=== PATIENT | female | born 1980 | race Caucasian/White ===

== ENCOUNTER → 2016-09-15 | Outpatient (CLI) | payer BC ==
[~2016-09-15] MED LIST: ASPI81TA28 PO; ENOX40IN SQ; PRED1SOL PO; PREN-88 PO; PRGI IM
== END | disposition home or self-care (01) ==
LOC: C.PAPS 16:05
PROVIDERS: ATTEND Obstetrics & Gynecology
DX: Z01.419 Encounter for gynecological examination (general) (routine) without abnormal findings (principal)

== ENCOUNTER → 2017-02-02 | Outpatient (CLI) | payer BC ==
--- NOTE | 2017-02-02 09:10 | DIAGNOSTIC IMAGING REPORT ---
KUB CLINICAL HISTORY: Abnormal cystoscopy. Gross hematuria. Nephrolithiasis. FINDINGS: 3 AP supine abdominal radiographs are correlated with abdominal CT dated 02/02/2016. There is no radiographic evidence of bowel obstruction. There is mild gaseous distention of the small bowel and colon, likely representing ileus. No renal calculi are identified. The bony structures appear intact. IMPRESSION: 1. There is no radiographic evidence of nephrolithiasis. Nonobstructing right renal calculi seen by CT on 02/02/2016 were not visualized by x-ray. 2. Findings suggest mild ileus. Clinical correlation will be required. Electronically signed by: Benton Brown M.D. 02/02/2017 9:09 AM Dictated Date/Time: 02/02/2017 9:06 AM
== END | disposition home or self-care (01) ==
LOC: C.RAD 08:29
PROVIDERS: ATTEND Urology
DX: R10.2 Pelvic and perineal pain (principal); N20.0 Calculus of kidney; N39.0 Urinary tract infection, site not specified; R31.0 Gross hematuria; R31.29 Other microscopic hematuria; R33.9 Retention of urine, unspecified; R39.198 Other difficulties with micturition

== ENCOUNTER → 2017-02-28 | Outpatient (CLI) | payer BC ==
--- NOTE | 2017-02-28 12:44 | DIAGNOSTIC IMAGING REPORT ---
ULTRASOUND RIGHT UPPER QUADRANT ABDOMEN CLINICAL HISTORY: Right upper quadrant abdominal pain. COMPARISON STUDY: Abdominal CT scans dated 02/02/2016, 04/29/2013, and 02/03/2011. TECHNIQUE: Real-time, grayscale, and color flow sonography of the right upper quadrant of the abdomen was performed. Images are reviewed in the transverse and longitudinal planes. The examination is significantly degraded by intervening colonic contents. FINDINGS: Liver: The liver is suboptimally assessed due to overlying colon. The liver is gross normal in echotexture. The right lobe appears diminutive. There is no intrahepatic biliary ductal dilatation. The main portal vein is patent. Gallbladder: The gallbladder is not visualized. The common bile duct is not seen. Pancreas: Not well visualized due to overlying bowel gas. Right kidney: Survey images of the right kidney demonstrate cortical atrophy. There is no hydronephrosis. Ascites: No abdominal ascites is identified. There is a multiloculated fluid containing structure identified in the right abdomen which extends into the pelvis. This measures at least 25 cm in length and has been seen on CT scans dated 2015, 2012, and 2010. IMPRESSION: 1. Significantly degraded examination as the right abdomen is largely obscured by the overlying gas-filled colon. The gallbladder, common bile duct, and pancreas were not visualized. The liver was suboptimally assessed. 2. There is a multiloculated fluid containing structure identified in the right midabdomen. This has been seen on prior CT scans dated 02/02/2016, 04/29/2013, and 02/03/2011. The appearance suggests a fluid density lesion such as a lymphangioma or possibly a mesenteric inclusion cyst, and this lesion has significantly increased in size dating back to 2010. No soft tissue component is identified. Findings were discussed with Dr. Hopper at the time of interpretation. Electronically signed by: Benton Brown M.D. 02/28/2017 12:43 PM Dictated Date/Time: 02/28/2017 12:15 PM
[2017-02-28 12:47] LABS: ALT/SGPT 21 U/L (12-78); AST/SGOT 12 U/L (15-37); BLOOD UREA NITROGEN 13 mg/dl (7-18); BUN/CREATININE RATIO 20.9 (10-20); CARBON DIOXIDE 27 mmol/L (21-32); CHLORIDE 110 mmol/L (98-107); CREATININE 0.62 mg/dl (0.60-1.20); GLUCOSE 89 mg/dl (70-99); POTASSIUM 3.7 mmol/L (3.5-5.1); SODIUM 141 mmol/L (136-145)
[2017-02-28 12:50] LABS: ALKALINE PHOSPHATASE 50 U/L (45-117); CHOLESTEROL 137 mg/dl (0-200); CHOLESTEROL/HDL RATIO 2.9; ESTIMATED AVERAGE GLUCOSE 108 mg/dl; HA1C FLAG Normal (Normal); HDL CHOLESTEROL 48 mg/dl; LDL CHOLESTEROL CALCULATED 71 mg/dl; TRIGLYCERIDES 91 mg/dl (0-150); VERY LOW DENSITY LIPOPROT CALC 18 mg/dl
== END | disposition home or self-care (01) ==
LOC: C.ULTR 10:59
PROVIDERS: ATTEND Student in an Organized Health Care Education/Training Program
DX: Z86.39 Personal history of other endocrine, nutritional and metabolic disease (principal); R10.11 Right upper quadrant pain; Z13.1 Encounter for screening for diabetes mellitus; Z13.220 Encounter for screening for lipoid disorders; R93.5 Abnormal findings on diagnostic imaging of other abdominal regions, including retroperitoneum

== ENCOUNTER → 2017-07-03 | Outpatient (CLI) | payer BC | END | disposition home or self-care (01) | LOC: C.LAB 17:10 | PROVIDERS: ATTEND Nurse Practitioner Adult Health | DX: N39.0 Urinary tract infection, site not specified (principal) ==

== ENCOUNTER → 2017-12-27 | Outpatient (CLI) | payer BC ==
--- NOTE | 2017-12-27 16:06 | MAMMOGRAPHY REPORT ---
BILATERAL FIRST EVER DIGITAL DIAGNOSTIC MAMMOGRAM TOMOSYNTHESIS WITH CAD AND TARGETED BILATERAL ULTRA SOUND: 12/27/2017 CLINICAL HISTORY: The patient reports a palpable left breast lump for approximately 1 month. She wilberto es any known trauma to the breast. TECHNIQUE: The study was acquired using full field digital technology and interpreted from soft copy. Breast tomosynthesis in addition to standard 2D mammography was performed. Current study was also ev aluated with a Computer Aided Detection (CAD) system. Bilateral CC and MLO 2D and tomosynthesis imag es were obtained. COMPARISON: No prior exams were available for comparison. BREAST COMPOSITION: There are scattered areas of fibroglandular density in both breasts. FINDINGS: A triangle marker fraire the site of the palpable lump pointed out by the patient in the lef t superior breast at approximately 1:00. No suspicious masses or other suspicious mammographic abnor malities are seen in this region. There is a nodular 10 mm asymmetry seen on the cc tomosynthesis im ages, for which ultrasound was performed. The remainder of both breasts are negative, without suspic ious masses, calcifications, or areas of architectural distortion noted. Targeted ultrasound was performed of the area of the palpable lump pointed out by the patient, in the left breast at approximately 12:00, 8 cm from the nipple. At the site of the palpable lump there is a superficially located, mixed echogenicity mass which measures 9 x 5 x 8 mm. The mass is centrally hypoechoic and peripherally hyperechoic. This has sonographic features of possible fat necrosis, ho wever, the patient denies any known trauma to the region. Therefore, the mass is indeterminate and u ltrasound-guided core needle biopsy is recommended for further evaluation. Targeted ultrasound was performed of the right medial breast in the region of the mammographic asymme try, which shows sonographically normal tissue without evidence of a mass or other suspicious sonogra phic abnormality. Given the lack of a corresponding abnormality, the asymmetry is felt to represent normal fibroglandular tissue. IMPRESSION: ACR BI-RADS CATEGORY 4: SUSPICIOUS, ULTRASOUND ACR BI-RADS CATEGORY 4: SUSPICIOUS 1. Mixed echogenicity 9 mm mass at the site of the palpable lump in the left 12:00 breast. This has sonographic features suggestive of fat necrosis, however, the patient denies any known trauma to the region. Therefore, the mass is indeterminate and ultrasound-guided core needle biopsy is recommende d for further evaluation. 2. No mammographic evidence of malignancy in the right breast. A phone call was made to the physician's office to confirm faxed results were received. The patient has been verbally notified of the results. She tentatively scheduled the biopsy before l eaving the department. Some breast cancers are not detected with mammography. A negative mammographic report should not lonnie y biopsy if a clinically suggestive mass is present. Ana Cervantes M.D. ah/:12/27/2017 12:45:52 Forest Fire Control Officer: RT Neymar(R)(M), [facility]; Ana Cervantes MD, [facility] letter sent: Abnormal 4/5 OVERALL STUDY BIRADS: 4 Suspicious abnormality
== END | disposition home or self-care (01) ==
LOC: C.MAMM 09:05
PROVIDERS: ATTEND Obstetrics & Gynecology
DX: N63.20 Unspecified lump in the left breast, unspecified quadrant (principal)

== ENCOUNTER → 2018-01-11 | Outpatient (CLI) | payer BC ==
--- NOTE | 2018-01-11 10:27 | Discharge Instructions ---
Discharge Instructions Procedure Procedure Date: Jan 11, 2018. Reason for visit: Left Mass. Discharge Discharge Date: Jan 11, 2018. Discharge Diagnosis: status post breast biopsy Instructions Activity Recommendations: Additional Limitations (see below) Return to School/Work: no limitations Recommended Home Diet: No Limitations Provider Instructions: ACTIVITY RECOMMENDATIONS: * No lifting, pushing, pulling or exercising the affected side for three days. RETURN TO SCHOOL/WORK: * You may return to work/school after the procedure, but do not perform any strenuous activities for 24 to 48 hours. MEDICATIONS: * Tylenol (two 325 mg) every four to six hours if needed for mild pain (if not allergic to Tylenol). DIET: * Resume previous diet. SPECIAL CARE INSTRUCTIONS: * Keep biopsy site dry for 24 hours. May shower after 24 hours, but do not soak (bathe) incision. * May remove Tegaderm (plastic patch) 24 hours after procedure * Leave the steri-strips on for one week. Allow the steri-strips to fall off by themselves. If not off after one week, you may remove them. You may place a Bandaid crosswise over the strips, if desired. * Apply ice 10 minutes on and 10 minutes off as needed. * Wear a bra at bedtime to sleep more comfortably for 2-3 days. * Your referring physician should have the results after approximately 5 to 7 business days. * Call for unusual bleeding, fever, drainage, etc or if you have any questions call during normal business hours or after hours call Dr Cervantes, . FOLLOW UP VISIT: Follow-up with Referring Physician as scheduled. Allergies Coded Allergies: No Known Allergies (Verified , 05/21/15) Neftaly Ugalde Recommendations: Call your doctor if: * Temperature above 101 degrees * Pain not relieved by pain medicine ordered * There is increased drainage or redness from any incision * You have any unanswered questions or concerns. Your Doctors Instructions noted above were prepared by provider Ana Cervantes. Patient Signature Section: Patient Instructions Signature Page Shay Reyes Patient (or Guardian) Signature/Date: I have read and understand the instructions given to me by my caregivers. Caregiver/RN/Doctor Signature/Date: The above-named patient and/or guardian has received patient instructions on this date. + Original Patient Signature Page (only) stays with chart. Please make copy for patient.
--- NOTE | 2018-01-11 14:34 | MAMMOGRAPHY REPORT ---
ULTRASOUND GUIDED BIOPSY LEFT BREAST: 01/11/2018 CLINICAL HISTORY: Mixed echogenicity mass in the left 12:00 breast. PATIENT CONSENT: The procedure, risks and benefits were discussed with the patient and informed writt en consent was obtained. A timeout was performed immediately prior to the procedure. PROCEDURE DESCRIPTION: With ultrasound guidance, aseptic technique, and lidocaine as the local anesth etic (1% lidocaine to anesthetize the skin and 1% lidocaine with epinephrine to anesthetize the deepe r tissues), the mass of concern in the left 12:00 breast was sampled 3 times with a 14-gauge Achieve biopsy needle. Immediately thereafter, with ultrasound guidance, a metallic localizer clip was plac ed at the biopsy site. Direct pressure was applied to the site immediately post procedure until hemo stasis was achieved. Postprocedure unilateral mammograms were performed to confirm clip placement; s ee separate dictation for details. Steri-Strips were placed over the site and covered with an Opsite patch. The patient tolerated the procedure without complication. She was given wound care instructi ons. The specimens were sent to pathology for analysis. COMPARISON: Comparison is made to exams dated: 12/27/2017 ultrasound and 12/27/2017 mammogram - [facility]. IMPRESSION: ULTRASOUND GUIDED BIOPSY Ultrasound-guided core needle biopsy of the mixed echogenicity mass in the left 12:00 breast, with cl ip placement. The patient will receive pathology results from her referring provider. Ana Ceravntes M.D. ah/:01/11/2018 10:28:26 Cardiology Technician: RT Yoselin(Afshin)(M), [facility]
--- NOTE | 2018-01-11 14:37 | MAMMOGRAPHY REPORT ---
UNILATERAL LEFT DIGITAL DIAGNOSTIC MAMMOGRAM TOMOSYNTHESIS: 01/11/2018 CLINICAL HISTORY: Status post left breast biopsy. TECHNIQUE: The study was acquired using full field digital technology and interpreted from soft copy. Breast tomosynthesis in addition to standard 2D mammography was performed. Postprocedural left CC a nd ML tomosynthesis images were obtained. COMPARISON: Comparison is made to exams dated: 12/27/2017 mammogram and 12/27/2017 ultrasound - [facility]. BREAST COMPOSITION: There are scattered areas of fibroglandular density in left breast. FINDINGS: A new ribbon-shaped biopsy marker clip is seen in the expected location of the biopsied mix ed echogenicity mass in the left superior breast at approximately 12:00. No significant postbiopsy h ematoma is seen. IMPRESSION: POST PROCEDURE IMAGING FOR MARKER PLACEMENT New biopsy clip status post left breast ultrasound-guided biopsy. Pathology results are pending. Some breast cancers are not detected with mammography. A negative mammographic report should not lonnie y biopsy if a clinically suggestive mass is present. Ana Cervantes M.D. ah/:01/11/2018 10:34:44 Glass Cutting Machine Feeder: RT Yoselin(R)(M), [facility] BI-RADS Code: Post Procedure Imaging For Marker Placement
== END | disposition home or self-care (01) ==
LOC: C.MAMM 09:28
PROVIDERS: ATTEND Obstetrics & Gynecology
DX: N61.0 Mastitis without abscess (principal)

== ENCOUNTER 2018-01-25 17:32 | Emergency (ER) | payer BC ==
[2018-01-25 17:34] VITALS: TEMP 36.6
[2018-01-25] MEDS ORDERED: IBUPROFEN 800 MG TAB PO STA (17:58)
--- NOTE | 2018-01-25 18:28 | DIAGNOSTIC IMAGING REPORT ---
RIGHT TIBIA AND FIBULA 2 VIEWS CLINICAL HISTORY: Right leg pain. FINDINGS: AP and lateral views of the right tibia and fibula are obtained. No prior studies are available for comparison at the time of dictation. The skeletal structures are well mineralized. No fracture is seen. The knee and ankle joints are grossly maintained. Mild soft tissue swelling is observed. IMPRESSION: Mild soft tissue swelling with no acute bony abnormality identified. Electronically signed by: Benton Brown M.D. 01/25/2018 6:27 PM Dictated Date/Time: 01/25/2018 6:26 PM
--- NOTE | 2018-01-25 18:29 | DIAGNOSTIC IMAGING REPORT ---
RIGHT KNEE 3 VIEWS CLINICAL HISTORY: Fall with right knee pain. FINDINGS: AP, crosstable lateral, and sunrise views of the right knee are obtained. No prior studies are available for comparison at the time of dictation. The skeletal structures are well mineralized. No fracture is seen. The joint spaces of the knee are well-maintained. There is no joint effusion. Mild prepatellar soft tissue swelling is noted. IMPRESSION: Mild soft tissue swelling with no radiographic evidence of right knee fracture. Electronically signed by: Benton Brown M.D. 01/25/2018 6:28 PM Dictated Date/Time: 01/25/2018 6:27 PM
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
[2018-01-25 18:56] VITALS: BP 151/79; PULSE 84; O2SAT 100
== END 2018-01-25 18:59 | disposition home or self-care (01) ==
LOC: C.EDB 17:33 → C.EDD 18:59
DX: S83.91XA Sprain of unspecified site of right knee, initial encounter (principal); S80.11XA Contusion of right lower leg, initial encounter; V09.09XA Pedestrian injured in nontraffic accident involving other motor vehicles, initial encounter; X50.1XXA Overexertion from prolonged static or awkward postures, initial encounter; Z79.02 Long term (current) use of antithrombotics/antiplatelets; Z79.01 Long term (current) use of anticoagulants

== ENCOUNTER 2023-05-08 16:08 | Observation (INO) ==
[2023-05-08] MEDS ORDERED: dexAMETHasone**PF** 10 MG/ML VIAL IM ONE (16:35)
[2023-05-08] MEDS ORDERED: diphenhydrAMINE 50 MG/ML VIAL IM STA (16:35)
--- NOTE | 2023-05-08 16:37 | ED Triage Note ---
Date of Service May 08, 2023 History of Present Illness This patient was briefly evaluated while in triage. An abbreviated physical exam was performed. This patient is a 43-year-old Female who presents to the ED for evaluation of a possible allergic reaction to a Depo-Provera shot that she just got in her family doctor's office. The patient elected to not wait after her injection. When she got to her car, she felt like her heart was racing, and had difficulty breathing. The patient reports that her symptoms have mildly improved since arrival to the emergency department. She denies any prior history of Depo- Provera shots. Physical Exam CONSTITUTIONAL: Healthy and well nourished. HEENT: No conjunctival injection or angioedema appreciated. RESPIRATORY: Clear to auscultation bilaterally with no wheezing, crackles, rhonchi or stridor. CARDIOVASCULAR: Regular rate and rhythm with no murmurs, rubs or gallops. INTEGUMENTARY: No rash or other significant dermatologic conditions noted. HEMATOLOGIC: No ecchymosis or petechiae. PSYCHIATRIC: Positive affect. NEUROLOGIC: No focal neurologic deficits noted. Initial orders for labs and / or imaging were placed and patient was placed in the waiting area until a bed is available. Please see further documentation for the full ED course.
[2023-05-08] MEDS ORDERED: methylPREDNISolone 125 MG/2 ML VIAL ONE (17:01)
[2023-05-08] MEDS ORDERED: ONDANSETRON INJ 2 MG/ML 2 ML VIAL ONE (17:01)
[2023-05-08] MEDS ORDERED: FAMOTIDINE 20MG IV PUSH 20 MG/5 ML SYR IV STA ×2 (17:06→20:24)
[2023-05-08] MEDS ORDERED: methylPREDNISolone 125 MG/2 ML VIAL IV STA (17:06)
[2023-05-08] MEDS ORDERED: diphenhydrAMINE 50 MG/ML VIAL IV STA (17:06)
[2023-05-08] MEDS ORDERED: PROMETHAZINE 25 MG/51 ML BAG IV STA (17:36)
--- NOTE | 2023-05-08 17:53 | Emergency Department Note ---
Impression & Plan Anaphylaxis, Adverse reaction to drug, Suprapubic abdominal pain ED Provider Note CHIEF COMPLAINT: Possible allergic reaction HISTORY OF PRESENTING ILLNESS: This 43-year-old female patient presents to the emergency department with her for evaluation of a possible allergic reaction. The patient received her first Depo shot in the left arm at 1615 today. 5 minutes later she developed shortness of breath, dizziness, chest tightness, nausea, diarrhea, and pain in the back and down her bilateral legs. Also complaining of a lot of pain in the suprapubic area like "10/10 menstrual cramps" radiating into her back. Her LMP was 05/03/23, but her bleeding stopped. Unsure if she started bleeding with the menstrual cramping. Has also had a lot of abdominal pain, nausea, and diarrhea. No vomiting yet. Has never had a reaction like this before. REVIEW OF SYSTEMS: See HPI for pertinent positives and pertinent negatives. ALLERGIES: NKDA MEDICATIONS: Mounjaro, Depo shot PAST MEDICAL HISTORY: DM, PHYSICAL EXAM: VITALS: Vitals are noted on the nurse's note and reviewed by myself. GENERAL: The patient appears uncomfortable and in pain, but non toxic, non- diaphoretic. SKIN: The patient's skin is a little flushed. Capillary refill <2 sec. EYES: PERRLA. EOMI. Conjunctivae without injection, sclerae without icterus. NOSE: Patent without discharge. MOUTH: Mucous membranes moist. Uvula midline. Airway patent. Pharynx without erythema, edema, or exudate. Tongue is not swollen. NECK: Supple without nuchal rigidity. No lymphadenopathy. HEART: Tachycardia without murmurs gallops or rubs. LUNGS: Clear to auscultation bilaterally without wheezes, rales or rhonchi. No retractions or accessory muscle use. ABDOMEN: Positive bowel sounds x 4. Normal tympanic percussion. Soft, tender to palpation in suprapubic area. No masses or organomegaly. Yarbrough sign negative. No guarding or rebound tenderness. No focal RLQ or LLQ tenderness. MUSCULOSKELETAL: No gross musculoskeletal defects. NEURO: Patient was alert and oriented. No focal neurological deficits. DIFFERENTIAL DIAGNOSIS: Differential diagnosis includes anaphylaxis, allergic reaction, side effect of the Depo shot, viral gastroenteritis, URI, vasovagal reaction, ovarian cyst, ovarian torsion, acute intra-abdominal etiology, or others. ED COURSE AND MEDICAL DECISION MAKING: MONITOR: Continuous diagnostic cardiac sonographer: Order was placed for continuous diagnostic cardiac sonographer. Patient was placed on the diagnostic cardiac sonographer and continuous pulse ox. Patient was noted to be in sinus tachycardia at an initial rate of 110 bpm per my interpretation. EKG: EKG was interpreted by myself as normal sinus rhythm at [address] bpm with [address] acute [address] or T wave abnormality. MEDICATIONS GIVEN: Benadryl 50 mg IM, Solu-Medrol 125 mg IM. Pepcid 20 mg IV, Zofran 4 mg IV, fentanyl 50 mcg IV. EpiPen 0.3 mg IM x 2. Normal saline solution 2 L bolus. Potassium acetate 10 meq IV. Magnesium 1 g IV. INTERPRETATION OF LABS: I interpreted the labs with full lab results as below in the lab section of this note. White blood cell count elevated at 28.56. Hemoglobin low at 10.3. Platelet count normal at 325. Potassium low at 2.6. Anion gap elevated at 17. Carbon dioxide low at 18. BUN elevated at 24. Creatinine normal at 0.8. Glucose elevated 176. Magnesium low at 1.4. LFTs were normal. High-sensitivity troponin was normal. TSH was normal. Serum hCG negative. Tryptase is still pending. INTERPRETATION OF IMAGING: Chest x-ray was interpreted by myself as negative for acute cardiopulmonary etiology. Radiology report still pending. Pelvic ultrasound and CT scan of the abdomen pelvis were still pending at the time of shift change. CONSULTATIONS: Dr. Harmon of [facility] [facility]. CRITICAL CARE: I have personally spent 45 minutes of critical care time in the direct management of this patient. This includes bedside care, interpretation of diagnostic studies, and testing, discussion with consultants, patient, and family members, and other required patient management activities. This 45 minutes is in excess of all separately billable procedures. MDM SUMMARY: Due to abnormally long wait times, the patient was initially evaluated in triage and protocol orders placed. There was significant difficulty obtaining an IV so she was given Benadryl and Solu-Medrol IM. I examined the patient when she was taken back to her room and she had only had mild improvement of her symptoms with the Benadryl and Solu-Medrol. I was concerned for anaphylactic type reaction due to her combination of shortness of breath, chest tightness, nausea, diarrhea, and abdominal pain. She was given an EpiPen with improvement of her symptoms. However, the symptoms then returned and she was given a second EpiPen. The patient was independently evaluated by Dr. Billingsley, who agrees with my assessment and treatment plan. The patient states that her allergic reaction type symptoms resolved after the second EpiPen. However, she continued with flushing of her skin as well as significant suprapubic abdominal pain and cramping. An IV lock was finally able to be placed and labs were drawn. She was then medicated with IV Pepcid, Zofran, and fentanyl along with 2 L of normal saline solution. This did improve her symptoms, but she continue with the abdominal pain. The patient stated she had no pain or symptoms prior to the Depo shot, but her symptoms seem out of proportion to an allergic reaction from the Depo shot. Therefore, CT scan of the abdomen pelvis and pelvic ultrasound were ordered. However, these were still pending at the time of shift change. The patient was given IV potassium and magnesium for repletion. I spoke with Dr. Arias of [facility] [facility] who stated he had never seen or heard of this type of reaction to the Depo shot. He did not have any further recommendations from an [employer] standpoint. The patient will require admission for further evaluation, treatment, and monitoring of her symptoms. However, will await the results of the CT scan and pelvic ultrasound prior to speaking to the on-call hospitalist. Due to change of shift, the patient's care was transferred to Pelon Hernandez PA-C. Please refer to his dictation for further details. The patient's care was transferred in stable condition. DIAGNOSIS: Anaphylactic reaction to Depo shot Suprapubic abdominal pain Past Med/Surg History Medical History History of in vitro fertilization Difficult intravenous access Slow to wake up after anesthesia PONV (postoperative nausea and vomiting) Urinary retention Peritoneal cyst Anxiety Gestational diabetes Legally blind History of ovarian cyst Endometrial polyp Menometrorrhagia 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 Nephrolithiasis Surgical History History of incision and drainage History of laparoscopy History of History of cholecystectomy History of colonoscopy H/O cystoscopy History of ankle surgery History of colon surgery H/O eye surgery Family History Mother Diabetes Family/Other Breast cancer Father Myocardial infarction Denies family history of Ovarian cancer Colorectal cancer Social History Smoking Status: Never smoker Second Hand Exposure: No; Hx Alcohol Use: No Hx Substance Use: No Preferred Language: Italian Communication Ability: Effective Rn Examiner Required: No Beliefs That Will Affect Care: None Current Living Situation: Spouse Feels Safe at Home: Yes Assistive Devices: Cane Allergies Allergies Allergy/AdvReac Type Severity Reaction Status Date / Time medroxyprogesterone Allergy Unknown Verified 05/09/23 15:33 [From Depo-Provera] Home Meds Home Medications Medication Instructions Recorded Confirmed folic acid 1 mg tablet 1 mg PO DAILY 05/08/23 05/08/23 tirzepatide 7.5 mg/0.5 mL 7.5 mg subcut WK 05/08/23 05/08/23 subcutaneous pen injector (Mounjaro) Results & Data (ED) Vital Signs Vital Signs - 24 hr 05/08/23 22:52 05/08/23 22:54 05/08/23 23:00 Pulse Rate 101 H 98 H Pulse Rate [Apical] 104 H Pulse Rate from SpO2 Sensor 97 H Respiratory Rate 10 L 20 26 H Blood Pressure Blood Pressure [Left Arm] 127/84 Blood Pressure Mean Blood Pressure Mean [Left Arm] 98 Pulse Oximetry 99 99 05/08/23 23:10 05/08/23 23:20 05/08/23 23:30 Pulse Rate 97 H 98 H 107 H Pulse Rate [Apical] Pulse Rate from SpO2 Sensor 97 H 100 H 108 H Respiratory Rate 30 H 20 24 Blood Pressure Blood Pressure [Left Arm] Blood Pressure Mean Blood Pressure Mean [Left Arm] Pulse Oximetry 96 94 98 05/08/23 23:32 05/08/23 23:40 05/08/23 23:50 Pulse Rate 109 H 99 H 97 H Pulse Rate [Apical] Pulse Rate from SpO2 Sensor 102 H 98 H Respiratory Rate 17 18 Blood Pressure Blood Pressure [Left Arm] Blood Pressure Mean Blood Pressure Mean [Left Arm] Pulse Oximetry 99 95 05/09/23 00:00 05/09/23 00:10 05/09/23 00:20 Pulse Rate 96 H 101 H 96 H Pulse Rate [Apical] Pulse Rate from SpO2 Sensor 95 H 101 H 95 H Respiratory Rate 21 31 H 29 H Blood Pressure Blood Pressure [Left Arm] Blood Pressure Mean Blood Pressure Mean [Left Arm] Pulse Oximetry 95 97 97 05/09/23 00:30 05/09/23 00:40 05/09/23 00:50 Pulse Rate 88 92 H 88 Pulse Rate [Apical] Pulse Rate from SpO2 Sensor 90 92 H 92 H Respiratory Rate 31 H 21 21 Blood Pressure Blood Pressure [Left Arm] Blood Pressure Mean Blood Pressure Mean [Left Arm] Pulse Oximetry 98 99 98 05/09/23 01:00 05/09/23 01:10 05/09/23 01:20 Pulse Rate 87 90 86 Pulse Rate [Apical] Pulse Rate from SpO2 Sensor 87 90 89 Respiratory Rate 14 21 17 Blood Pressure Blood Pressure [Left Arm] Blood Pressure Mean Blood Pressure Mean [Left Arm] Pulse Oximetry 99 97 97 05/09/23 01:30 05/09/23 01:42 05/09/23 01:50 Pulse Rate 96 H 111 H 102 H Pulse Rate [Apical] Pulse Rate from SpO2 Sensor 112 H 100 H Respiratory Rate 19 17 15 Blood Pressure Blood Pressure [Left Arm] Blood Pressure Mean Blood Pressure Mean [Left Arm] Pulse Oximetry 99 99 05/09/23 01:57 05/09/23 01:57 05/09/23 02:00 Pulse Rate 92 H 84 Pulse Rate [Apical] Pulse Rate from SpO2 Sensor 93 H 85 Respiratory Rate 24 14 Blood Pressure 110/66 Blood Pressure [Left Arm] Blood Pressure Mean 80 Blood Pressure Mean [Left Arm] Pulse Oximetry 99 99 05/09/23 02:00 Pulse Rate Pulse Rate [Apical] Pulse Rate from SpO2 Sensor Respiratory Rate Blood Pressure 111/66 Blood Pressure [Left Arm] Blood Pressure Mean 80 Blood Pressure Mean [Left Arm] Pulse Oximetry Laboratory Data 05/09/23 04:32 05/09/23 04:32 Lab Results 05/08/23 05/08/23 Range/Units 20:07 20:09 WBC 28.56 H (4.8-10.8) K/ul RBC 4.81 (4.20-5.40) M/uL Hgb 10.3 L (12.0-16.0) g/dl Hct 33.9 L (37.0-47.0) % MCV 70.5 L (80.0-100.0) fL MCH 21.4 L (25.0-34.0) pg MCHC 30.4 L (32.0-36.0) g/dL RDW Std Deviation 42.9 (36.4-46.3) fL RDW Coeff of Brad 18.2 H (11.5-14.5) % Plt Count 325 (130-400) K/uL MPV 10.5 (9.4-12.4) fL Immature Gran % (Auto) 1.0 % Neut % (Auto) 92.7 % Lymph % (Auto) 3.8 % [place] % (Auto) 2.3 % Eos % (Auto) 0.0 % Baso % (Auto) 0.2 % Neut # (Auto) 26.45 H (1.40-6.50) K/uL Lymph # (Auto) 1.08 L (1.20-3.40) K/uL [place] # (Auto) 0.66 H (0.11-0.59) K/uL Eos # (Auto) 0.01 (0.00-0.50) K/uL Baso # (Auto) 0.07 (0.00-0.20) K/uL Immature Gran # (Auto) 0.29 H (0.01-0.20) K/uL Toxic Vacuolation 1+ Ovalocytes 1+ Sodium 141 (136-145) mmol/L Potassium 2.6 L (3.5-5.1) mmol/L Chloride 106 (98-107) mmol/L Carbon Dioxide 18 L (21-32) mmol/L Anion Gap 17 H (3-11) BUN 24 H (6-23) mg/dl Creatinine 0.80 (0.6-1.2) mg/dl Est Cr Clr Drug Dosing 99.1 ml/min Est GFR ( Amer) 103.9 ml/min Est GFR (Non-Af Amer) 89.7 ml/min BUN/Creatinine Ratio 30.0 H (10-20) Glucose 176 H (70-99(Fasting)) mg/dl Calcium 9.0 (8.6-10.3) mg/dl Magnesium 1.4 L (1.7-2.4) mg/dl Total Bilirubin 0.8 (0.2-1.0) mg/dl AST 19 (13-39) U/L ALT 14 (7-52) U/L Alkaline Phosphatase 56 (34-104) U/L Troponin I High Sens 6.9 (0-14) pg/ml Total Protein 7.2 (6.0-8.3) gm/dl Albumin 4.1 (3.4-5.0) gm/dl Globulin 3.1 (2.5-4.0) gm/dl Albumin/Globulin Ratio 1.3 (0.9-2) TSH 3.065 (0.300-4.500) uIu/ml HCG, Qual Negative (Negative) Administered Medications Discontinued Medications Acetaminophen (Acetaminophen 325 Mg Tab) 325 mg PO NOW STA Stop: 05/09/23 08:28 Last Admin: 05/09/23 08:31 Dose: 325 mg Documented By: JUAN Dexamethasone Sodium Phosphate (DexamethasonePf 10 Mg/Ml Vial) 10 mg IM NOW ONE Stop: 05/08/23 16:36 Last Admin: 05/08/23 17:03 Dose: Not Given Documented By: MES Diphenhydramine HCl (Diphenhydramine 50 Mg/Ml Vial) 50 mg IM NOW STA Stop: 05/08/23 16:36 Last Admin: 05/08/23 17:25 Dose: Not Given Documented By: MES Diphenhydramine HCl (Diphenhydramine 50 Mg/Ml Vial) 50 mg IV NOW STA Stop: 05/08/23 17:07 Last Admin: 05/08/23 17:25 Dose: 50 mg Documented By: MES Epinephrine HCl (Epinephrine Adult Auto-Inject 0.3 Mg Syr) 0.3 mg IM NOW STA Stop: 05/08/23 18:15 Last Admin: 05/08/23 18:18 Dose: 0.3 mg Documented By: ACC Epinephrine HCl (Epinephrine Adult Auto-Inject 0.3 Mg Syr) 0.3 mg IM NOW STA Stop: 05/08/23 18:46 Last Admin: 05/08/23 18:49 Dose: 0.3 mg Documented By: ACC Fentanyl Citrate (Fentanyl Citrate Pf 100 Mcg/2 Ml Vial) 50 mcg IV NOW STA Stop: 05/08/23 19:16 Last Admin: 05/08/23 20:16 Dose: 50 mcg Documented By: KISHA Folic Acid (Folic Acid 1 Mg Tab) 1 mg PO DAILY BRUCE Stop: 06/08/23 08:59 Last Admin: 05/09/23 08:31 Dose: 1 mg Documented By: JUAN Famotidine (Pepcid 20mg Iv Push) 20 mg in 5 mls @ 2.5 mls/min IV NOW STA Stop: 05/08/23 17:07 Last Admin: 05/08/23 20:35 Dose: Not Given Documented By: ZUNILDA Promethazine HCl (Phenergan) 25 mg in 51 mls @ 204 mls/hr IV NOW STA Stop: 05/08/23 17:50 Last Admin: 05/08/23 20:35 Dose: Not Given Documented By: ZUNILDA Sodium Chloride (Nss) 1,000 mls @ 999 mls/hr IV .Q1H1M ONE Stop: 05/08/23 19:17 Last Infusion: 05/08/23 21:24 Dose: Infused Documented By: Admin: 05/08/23 20:16 Dose: 999 mls/hr Documented By: KISHA Famotidine (Pepcid 20mg Iv Push) 20 mg in 5 mls @ 2.5 mls/min IV NOW STA Stop: 05/08/23 20:25 Last Admin: 05/08/23 20:32 Dose: 2.5 mls/min Documented By: KISHA Sodium Chloride (Nss) 1,000 mls @ 999 mls/hr IV .Q1H1M ONE Stop: 05/08/23 21:24 Last Infusion: 05/08/23 23:00 Dose: Infused Documented By: Admin: 05/08/23 21:23 Dose: 999 mls/hr Documented By: ZUNILDA Potassium Acetate (Potassium Acetate/Nss) 10 meq in 105 mls @ 105 mls/hr IV Q1H ONE Stop: 05/08/23 22:03 Last Infusion: 05/09/23 00:40 Dose: Infused Documented By: Admin: 05/08/23 23:37 Dose: 105 mls/hr Documented By: AURA Magnesium Sulfate/Dextrose (Magnesium Sulfate / D5w) 1 gm in 100 mls @ 100 mls/hr IV NOW STA Stop: 05/08/23 22:47 Last Infusion: 05/09/23 00:34 Dose: Infused Documented By: Admin: 05/08/23 23:32 Dose: 100 mls/hr Documented By: AURA Acetaminophen (Ofirmev) 1,000 mg in 100 mls @ 400 mls/hr IV NOW STA Stop: 05/08/23 22:29 Last Infusion: 05/08/23 23:15 Dose: Infused Documented By: Admin: 05/08/23 22:53 Dose: 400 mls/hr Documented By: ZUNILDA Magnesium Sulfate/Dextrose (Magnesium Sulfate / D5w) 1 gm in 100 mls @ 50 mls/hr IV ONE ONE Stop: 05/09/23 03:14 Last Infusion: 05/09/23 04:16 Dose: Infused Documented By: Admin: 05/09/23 02:09 Dose: 50 mls/hr Documented By: AURA Potassium Chloride (K Angel / Wtr) 10 meq in 100 mls @ 100 mls/hr IV Q1H BRUCE Stop: 05/09/23 05:14 Last Infusion: 05/09/23 06:44 Dose: Infused Documented By: Admin: 05/09/23 05:29 Dose: 100 mls/hr Documented By: Infusion: 05/09/23 05:22 Dose: Infused Documented By: Admin: 05/09/23 04:22 Dose: 100 mls/hr Documented By: Infusion: 05/09/23 04:16 Dose: Infused Documented By: Admin: 05/09/23 03:38 Dose: 100 mls/hr Documented By: Infusion: 05/09/23 03:17 Dose: Infused Documented By: Admin: 05/09/23 02:17 Dose: 100 mls/hr Documented By: AURA Famotidine 20 mg/ Syringe 5 mls @ 2.5 mls/min IV BID BRUCE Stop: 06/08/23 08:59 Last Admin: 05/09/23 08:31 Dose: 2.5 mls/min Documented By: JUAN Methylprednisolone 60 mg/ (Syringe) 0.96 mls @ 1.5 mls/min IV QAM BRUCE Stop: 06/08/23 08:59 Last Admin: 05/09/23 08:31 Dose: 1.5 mls/min Documented By: JUAN Influenza Virus Vaccine Quadrival (Influenza Virus Quadrivalent Vaccine (Iiv4) 0.5 Ml Syr) 0.5 ml IM .ONCE ONE Stop: 05/09/23 09:54 Last Admin: 05/09/23 11:43 Dose: 0.5 ml Documented By: KV Loratadine (Loratadine 10 Mg Tab) 10 mg PO QAM BRUCE Stop: 06/08/23 08:59 Last Admin: 05/09/23 08:31 Dose: 10 mg Documented By: KV Methylprednisolone (Methylprednisolone 125 Mg/2 Ml Vial) Confirm Administered Dose 125 mg .ROUTE .STK-MED ONE Stop: 05/08/23 17:02 Last Admin: 05/08/23 17:25 Dose: Not Given Documented By: MES Methylprednisolone (Methylprednisolone 125 Mg/2 Ml Vial) 125 mg IV NOW STA Stop: 05/08/23 17:07 Last Admin: 05/08/23 17:24 Dose: 125 mg Documented By: MES Ondansetron HCl (Ondansetron Inj 2 Mg/Ml 2 Ml Vial) Confirm Administered Dose 4 mg .ROUTE .STK-MED ONE Stop: 05/08/23 17:02 Last Admin: 05/08/23 17:24 Dose: 4 mg Documented By: MES Ondansetron HCl (Ondansetron Inj 2 Mg/Ml 2 Ml Vial) 4 mg IV NOW STA Stop: 05/08/23 19:16 Last Admin: 05/08/23 20:16 Dose: 4 mg Documented By: AMS Potassium Chloride (Potassium Chloride Crtab 20 Meq Tabcr) 40 meq PO NOW STA Stop: 05/09/23 01:09 Last Admin: 05/09/23 02:02 Dose: 40 meq Documented By: Imaging Data Radiologist's Impression: Pelvis Ultrasound 05/08/23 20:35 Exam(s): US PELVIS EXAM: US Pelvis Transabdominal and Transvaginal, Complete CLINICAL HISTORY: Pelvic pain. TECHNIQUE: Real-time complete transabdominal and transvaginal pelvic ultrasound with image documentation. Transvaginal imaging was used for better evaluation of the endometrium and adnexa. COMPARISON: Ultrasound pelvis images dated 04/24/2023. No report available for the examination. FINDINGS: Limitations: Prominent bowel gas pattern limits evaluation both transabdominally and endovaginally. Uterus/cervix: The uterus measures 9.2 x 5.4 x 5.7 cm. The endometrial stripe measures 11 mm from 8 mm previously and is somewhat heterogeneous, most conspicuous in the lower uterine segment, similar to the previous examination. There is a similar partially pedunculated hypoechoic area involving the left posterior aspect of the uterus measuring 3.1 x 2.5 x 2.7 cm. Right ovary: The right ovary is poorly delineated secondary to bowel gas pattern but is estimated at 3.6 x 2 x 2.2 cm. Evaluation for vascular flow is not possible secondary to prominent shadowing. Left ovary: The left ovary measures 2.1 x 2.9 x 2.4 cm. Internal vascular flow noted. Normal blood flow. Free fluid: Trace free fluid in the pelvic cul-de-sac. Bladder: Unremarkable as visualized. Wall is normal thickness for degree of distention. IMPRESSION: 1. Stable appearing subserosal fibroid involving the left posterior uterus. 2. The endometrial stripe is somewhat heterogeneous, particularly in the lower uterine segment but is similar to the prior ultrasound examination and is within normal limits, measuring 11 mm from 8 mm previously. 3. The right ovary is poorly delineated but appears grossly unremarkable. The left ovary is unremarkable. No adnexal mass. 4. Trace free fluid in the pelvic cul-de-sac. Electronically signed by: Gustavo Fernandez MD 05/08/23 23:20 PM Chest X-Ray 05/08/23 20:59 XR chest 1V portable CLINICAL HISTORY: Allergic reaction. COMPARISON STUDY: Chest radiograph October 03, 2007. FINDINGS: Lung volumes are normal. Lungs are clear. There is no pneumothorax or pleural effusion. Cardiac size is normal. Mediastinal contours are normal. There is no evidence for pulmonary edema. IMPRESSION: No acute cardiopulmonary findings. ACT 112: Negative or not required by law. Electronically signed by: Elias Wilkes M.D. 05/09/2023 6:53 AM Discharge Plan Visit Data Chief Complaint: Allergic Reaction Stated Complaint: HAD DEPO SHOT, POSSIBLE ALLERGY,SOB,BODY NUMBNESS ED Provider: Malissa Billingsley ED Midlevel Provider: Pelon Hernandez Discharge Problem: Anaphylaxis, Adverse reaction to drug, Suprapubic abdominal pain Patient Disposition: Admitted As Inpatient Condition: Good Discharge Instructions Interventions: ED Discharge Assessment Last Done: 05/09/23 03:51 Discharge Problem: Anaphylaxis Qualifiers: Encounter type: initial encounter Qualified Code(s): T78.2XXA - Anaphylactic shock, unspecified, initial encounter Adverse reaction to drug Qualifiers: Encounter type: initial encounter Qualified Code(s): T50.905A - Adverse effect of unspecified drugs, medicaments and biological substances, initial encounter
[2023-05-08] MEDS ORDERED: EPINEPHrine ADULT AUTO-INJECT 0.3 MG SYR IM STA ×2 (18:14→18:45)
[2023-05-08] MEDS ORDERED: SODIUM CHLORIDE 0.9% 1,000 ML IV ONE ×2 (18:17→20:24)
[2023-05-08] MEDS ORDERED: fentaNYL citrate PF 100 MCG/2 ML VIAL IV STA (19:15)
[2023-05-08] MEDS ORDERED: ONDANSETRON INJ 2 MG/ML 2 ML VIAL IV STA (19:15)
--- NOTE | 2023-05-08 19:49 | Emergency Department Note ---
ED Visit Note I was consulted by the Advanced Practice Provider. I personally approved the management plan for patient management with the [facility]. I performed a substantive portion of the visit. This includes the aspects of: -History/Physical/Personally seeing the patient -MDM -I independently interpreted the following studies:Studies and results -I reviewed vital signs and repeat medication dosing -We discussed plan for admission .
[2023-05-08 20:32] LABS: Hematocrit (blood only) 33.9 % (37.0-47.0); Hemoglobin 10.3 g/dl (12.0-16.0); Mean Corpuscular Hemoglobin 21.4 pg (25.0-34.0); Mean Corpuscular Hgb Conc 30.4 g/dL (32.0-36.0); Mean Corpuscular Volume 70.5 fL (80.0-100.0); Mean Platelet Volume 10.5 fL (9.4-12.4); Platelet Count 325 K/uL (130-400); RDW Coefficient of Variation 18.2 % (11.5-14.5); RDW Standard Deviation 42.9 fL (36.4-46.3); Red Blood Count 4.81 M/uL (4.20-5.40); White Blood Count 28.56 K/ul (4.8-10.8)
[2023-05-08 20:50] LABS: Albumin Globulin Ratio 1.3 (0.9-2); Albumin Level 4.1 gm/dl (3.4-5.0); Bilirubin,Total 0.8 mg/dl (0.2-1.0); Creatinine Clr Calc Pharmacy 99.1 ml/min; Est GFR (African American) 103.9 ml/min; Est GFR (Non-African American) 89.7 ml/min; Globulin 3.1 gm/dl (2.5-4.0); Potassium 2.6 mmol/L (3.5-5.1); Total Protein 7.2 gm/dl (6.0-8.3)
[2023-05-08 20:51] LABS: Basophils # (auto) 0.07 K/uL (0.00-0.20); Basophils % (auto) 0.2 %; Eosinophils # (auto) 0.01 K/uL (0.00-0.50); Immature Granulocytes # (auto) 0.29 K/uL (0.01-0.20); Lymphocytes # (auto) 1.08 K/uL (1.20-3.40); Lymphocytes % (auto) 3.8 %; Monocytes # (auto) 0.66 K/uL (0.11-0.59); Monocytes % (auto) 2.3 %; Neutrophils # (auto) 26.45 K/uL (1.40-6.50); Neutrophils % (auto) 92.7 %; Ovalocytes 1+; Toxic Vacuolation 1+
[2023-05-08 20:54] LABS: Pregnancy Test, Serum Negative (Negative)
[2023-05-08 20:56] LABS: Troponin I High Sensitivity 6.9 pg/ml (0-14)
[2023-05-08] MEDS ORDERED: POTASSIUM ACETATE/NSS 10 MEQ/105 ML BAG IV ONE (21:04)
[2023-05-08 21:05] LABS: Thyroid Stimulating Hormone 3.065 uIu/ml (0.300-4.500)
[2023-05-08 21:18] LABS: Magnesium 1.4 mg/dl (1.7-2.4)
[2023-05-08] MEDS ORDERED: MAGNESIUM SULFATE / D5W 1 GM/100 ML BAG IV STA (21:48)
--- NOTE | 2023-05-08 22:07 | Emergency Department Note ---
ED Visit Note Patient care was assumed from my colleague, Love Samano PA-C, at the time of shift change. Please see . Samano's dictation for full history of present illness and emergency department course prior to my assumption of care. In short the patient received the Depo shot today and seemed to have an almost immediate allergic reaction to this. She has required multiple rounds of epinephrine which seemed to help her discomfort. Unfortunately the patient has persistent abdominal pain and a very high white count of 28,000. At the time of shift change ultrasound and CT scan of the abdomen and pelvis was pending. CT scan and ultrasound were reviewed by myself and radiology showing no acute process. On reevaluation the patient does feel improved after epinephrine here in the ER. She does not seem well for discharge as she will likely need continued monitoring following several rounds of epinephrine. The case was discussed with the on-call [facility] hospitalist team who agreed to evaluate the patient here in the ER. Please see their dictation for further patient course, plan, disposition. .
[2023-05-08] MEDS ORDERED: ACETAMINOPHEN 1,000 MG/100 ML VIAL IV STA (22:15)
--- NOTE | 2023-05-08 23:21 | Ultrasound Report ---
Exam(s): US PELVIS EXAM: US Pelvis Transabdominal and Transvaginal, Complete CLINICAL HISTORY: Pelvic pain. TECHNIQUE: Real-time complete transabdominal and transvaginal pelvic ultrasound with image documentation. Transvaginal imaging was used for better evaluation of the endometrium and adnexa. COMPARISON: Ultrasound pelvis images dated 04/24/2023. No report available for the examination. FINDINGS: Limitations: Prominent bowel gas pattern limits evaluation both transabdominally and endovaginally. Uterus/cervix: The uterus measures 9.2 x 5.4 x 5.7 cm. The endometrial stripe measures 11 mm from 8 mm previously and is somewhat heterogeneous, most conspicuous in the lower uterine segment, similar to the previous examination. There is a similar partially pedunculated hypoechoic area involving the left posterior aspect of the uterus measuring 3.1 x 2.5 x 2.7 cm. Right ovary: The right ovary is poorly delineated secondary to bowel gas pattern but is estimated at 3.6 x 2 x 2.2 cm. Evaluation for vascular flow is not possible secondary to prominent shadowing. Left ovary: The left ovary measures 2.1 x 2.9 x 2.4 cm. Internal vascular flow noted. Normal blood flow. Free fluid: Trace free fluid in the pelvic cul-de-sac. Bladder: Unremarkable as visualized. Wall is normal thickness for degree of distention. IMPRESSION: 1. Stable appearing subserosal fibroid involving the left posterior uterus. 2. The endometrial stripe is somewhat heterogeneous, particularly in the lower uterine segment but is similar to the prior ultrasound examination and is within normal limits, measuring 11 mm from 8 mm previously. 3. The right ovary is poorly delineated but appears grossly unremarkable. The left ovary is unremarkable. No adnexal mass. 4. Trace free fluid in the pelvic cul-de-sac. Electronically signed by: Gustavo Fernandez MD 05/08/23 23:20 PM
--- NOTE | 2023-05-08 23:34 | CT Scan Report ---
Exam(s): CT ABDOMEN + PELVIS Without Contrast EXAM: CT Abdomen and Pelvis Without Intravenous Contrast CLINICAL HISTORY: Abdominal pain. TECHNIQUE: Axial computed tomography images of the abdomen and pelvis without intravenous contrast. CTDI is 24.65 mGy and DLP is 1387.36 mGy-cm. Automated exposure control was utilized for the study. A dose lowering technique was utilized adhering to the principles of ALARA. COMPARISON: CT abdomen and pelvis with without contrast dated 02/02/2016 FINDINGS: Lung bases: Unremarkable. No mass. No consolidation. ABDOMEN: Liver: The unenhanced liver demonstrate stable morphologic features. No focal abnormality suspected. Gallbladder and bile ducts: Unremarkable. No calcified stones. No ductal dilation. Pancreas: Unremarkable. No ductal dilation. Spleen: Unremarkable. No splenomegaly. Adrenals: Unremarkable. No mass. Kidneys and ureters: The previously noted right-sided nephrolithiasis is no longer present. No left-sided nephrolithiasis. No hydronephrosis or ureteral stones. Stomach and bowel: No evidence for bowel obstruction. Evaluation of the bowel mucosa is slightly limited without contrast; however, no definite focal asymmetry suggested. PELVIS: Appendix: The appendix is not clearly delineated. No secondary findings to suggest acute appendicitis. Bladder: Unremarkable. No stones. Reproductive: The cystic changes involving the right adnexa noted previously are no longer definitively present. Lobulation of the posterior aspect of the uterus is identified. ABDOMEN and PELVIS: Intraperitoneal space: The previously noted free fluid in the abdomen and pelvis has resolved. No free air. Bones/joints: No acute fracture. No dislocation. Soft tissues: Unremarkable. Vasculature: Unremarkable. No abdominal aortic aneurysm. Lymph nodes: Unremarkable. No enlarged lymph nodes. IMPRESSION: No evidence for bowel obstruction. Evaluation of the bowel mucosa is slightly limited without contrast; however, no definite focal asymmetry suggested. No free intraperitoneal fluid or pneumoperitoneum. Otherwise negative noncontrast examination. Electronically signed by: Gustavo Fernandez MD 05/08/23 23:33 PM
[2023-05-09] MEDS ORDERED: POTASSIUM CHLORIDE CRTAB 20 MEQ TABCR PO STA (01:08)
[2023-05-09] MEDS ORDERED: MAGNESIUM SULFATE / D5W 1 GM/100 ML BAG IV ONE (01:15)
[2023-05-09] MEDS: POTASSIUM CHLORIDE / WTR 10 MEQ/100 ML PLCT IV SCH ×4 (02:17→05:29)
--- NOTE | 2023-05-09 02:29 | History & Physical Report ---
Date of Service May 09, 2023 Assessment & Plan (1) Allergen injection reaction: Plan: 43-year-old female with past med significant for MTHFR mutation, history of cerebral palsy, history of retinopathy of prematurity, obesity, depression, comes because of allergic reaction. Patient had a Depo shot today and is when she was going home she felt redness all over her body and tingling in the legs and was feeling nauseous, , abdominal pain, had some chest pain and shortness of breath. Was also having diarrhea. Allergic reaction after Depo shot Had chest pain, shortness of breath, nausea, abdominal pain, redness on her body and tingling in the legs IV steroid and IV Benadryl did not improve After receiving 2 shots of IM epinephrine her symptoms resolved Will continue with IV Solu-Medrol, cetirizine, Pepcid, and IV Benadryl as needed EPI if needed Allergy/immunology consult Close monitoring the telemetry Hypokalemia and hypomagnesia Will replace Follow repeat labs Abdominal pain Pelvic ultrasound showing fibroids Patient states she knows she has fibroids follows with MANUFACTURER Will consult MANUFACTURER while patient in the hospital DVT prophylaxis SCDs for now Disposition telemetry floor Full code History of Present Illness Chief Complaint: Allergic reaction Primary Care Provider: Niya Bueno DO 43-year-old female with past med significant for MTHFR mutation, history of cerebral palsy, history of retinopathy of prematurity, obesity, depression, comes because of allergic reaction. Patient had a Depo shot today and when she was going home she felt redness all over her body and tingling in the legs and was feeling nauseous, , abdominal pain, had some chest pain and shortness of breath. Was also having diarrhea. In the ER IV steroid and IV Benadryl given but symptoms did not improve. IM epi was given which improved her symptoms but not totally and after second dose of IM epinephrine her symptoms resolved. Currently resting comfortably and hemodynamically stable. Currently no chest pain or shortness of breath. No nausea. Has some mild abdominal pain. No h eadache. No blurred visions. No difficulty swallowing. No sore throat. No cough. No fevers. Past med history. As mentioned above Past surgical history. Right cataract complex surgery. Colonoscopy. Dilatation and curettage. Exploratory laparotomy. Iridotomy. Laparoscopic unsuccessful lysis of pelvic admissions. Laser trabeculoplasty. Ocular processes. Partial removal of colon at and had reversed ileostomy at age 8 months. Cholecystectomy. Removal of small intestine with fusion. Social history. . No smoking. Alcohol rarely. No drug use Family history. Father had skin cancer. Hypertension. CABG. Hypertension. Mother had skin cancer. Diabetes. Hypertension. Hypothyroidism. Allergies Allergy/AdvReac Type Severity Reaction Status Date / Time No Known Allergies Allergy Unknown Verified 05/08/23 18:08 Home Medications Medication Instructions Recorded Confirmed Type folic acid 1 mg tablet 1 mg PO DAILY 05/08/23 05/08/23 History medroxyprogesterone 150 mg/mL 150 mg IM DIRECTED 05/08/23 05/08/23 History intramuscular suspension (Depo-Provera) tirzepatide 7.5 mg/0.5 mL 7.5 mg subcut WK 05/08/23 05/08/23 History subcutaneous pen injector (Shanunabbiero) Past Med/Surg History Medical History History of in vitro fertilization Difficult intravenous access Slow to wake up after anesthesia PONV (postoperative nausea and vomiting) Urinary retention Peritoneal cyst Anxiety Gestational diabetes Legally blind History of ovarian cyst Endometrial polyp Menometrorrhagia 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 Nephrolithiasis Surgical History History of incision and drainage History of laparoscopy History of History of cholecystectomy History of colonoscopy H/O cystoscopy History of ankle surgery History of colon surgery H/O eye surgery Family History Mother Diabetes Family/Other Breast cancer Father Myocardial infarction Denies family history of Ovarian cancer Colorectal cancer Social History Smoking Status: Never smoker Second Hand Exposure: No; Do You Dip or Chew Tobacco: No; Hx Alcohol Use: Yes Hx Substance Use: No Preferred Language: Turkish Communication Ability: Effective 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 ENT- oropharynx clear Neck- supple, no JVD. Lungs- clear to auscultation No wheezing or crackles. Heart- regular rhythm; no murmur, no gallop. Abdomen- normal bowel sounds, soft, nontender, no distension. Extremities- no pretibial edema, no erythema seen. Neuro- alert, oriented x 3; no facial palsy; no dysarthria; moves extremities. Skin- warm & dry Results & Data Results & Data Vital Signs (Past 12 Hours) Vital Signs Temp Pulse Pulse Resp BP BP Pulse Ox 05/09/23 01:50 102 H 15 99 05/09/23 01:42 111 H 17 99 05/09/23 01:30 96 H 19 05/09/23 01:20 86 17 97 05/09/23 01:10 90 21 97 05/09/23 01:00 87 14 99 05/09/23 00:50 88 21 98 05/09/23 00:40 92 H 21 99 05/09/23 00:30 88 31 H 98 05/09/23 00:20 96 H 29 H 97 05/09/23 00:10 101 H 31 H 97 05/09/23 00:00 96 H 21 95 05/08/23 23:50 97 H 18 95 05/08/23 23:40 99 H 17 99 05/08/23 23:32 109 H 05/08/23 23:30 107 H 24 98 05/08/23 23:20 98 H 20 94 05/08/23 23:10 97 H 30 H 96 05/08/23 23:00 98 H 26 H 99 05/08/23 22:54 104 H 20 127/84 99 05/08/23 22:52 101 H 10 L 05/08/23 22:34 88 20 127/84 98 05/08/23 22:30 100 H 19 100 05/08/23 22:24 102 H 22 100 05/08/23 22:24 127/84 05/08/23 22:20 101 H 18 05/08/23 22:12 105 H 37 H 05/08/23 21:32 100 05/08/23 21:22 127/70 11/28/23 21:22 106 H 27 H 100 05/08/23 21:22 104 H 20 127/70 100 05/08/23 21:20 103 H 32 H 100 05/08/23 21:10 105 H 27 H 100 05/08/23 21:00 98 H 18 100 05/08/23 20:50 97 H 16 100 05/08/23 20:40 108 H 34 H 100 05/08/23 20:30 94 H 24 100 05/08/23 20:27 99 H 22 97 05/08/23 20:27 97 05/08/23 20:20 94 H 25 H 100 05/08/23 20:17 98 H 20 138/66 100 05/08/23 20:10 101 H 14 05/08/23 20:00 102 H 15 05/08/23 19:50 101 H 10 L 05/08/23 19:40 94 H 8 L 05/08/23 19:30 98 H 20 05/08/23 19:25 96 H 14 05/08/23 19:24 97 H 05/08/23 16:28 36.7 C 112 H 24 101/74 98 O2 Del Method 05/09/23 01:50 05/09/23 01:42 05/09/23 01:30 05/09/23 01:20 05/09/23 01:10 05/09/23 01:00 05/09/23 00:50 05/09/23 00:40 05/09/23 00:30 05/09/23 00:20 05/09/23 00:10 05/09/23 00:00 05/08/23 23:50 05/08/23 23:40 05/08/23 23:32 05/08/23 23:30 05/08/23 23:20 05/08/23 23:10 05/08/23 23:00 05/08/23 22:54 05/08/23 22:52 05/08/23 22:34 Room Air 05/08/23 22:30 05/08/23 22:24 05/08/23 22:24 05/08/23 22:20 05/08/23 22:12 05/08/23 21:32 05/08/23 21:22 05/08/23 21:22 05/08/23 21:22 Room Air 05/08/23 21:20 05/08/23 21:10 05/08/23 21:00 05/08/23 20:50 05/08/23 20:40 05/08/23 20:30 05/08/23 20:27 Room Air 05/08/23 20:27 Room Air, Nasal Cannula, Oxymask, Aerosol Mask, Ambu-Bag, BiPAP, CPAP, Free Flow/Blow-by, High Flow Nasal Cannula, Oxyhood, Mechanical Vent, Nasal CPAP, Nebulizer, Non-rebreather, T-Piece, Trach Collar, Face Tent, Other 05/08/23 20:20 05/08/23 20:17 Room Air 05/08/23 20:10 05/08/23 20:00 05/08/23 19:50 05/08/23 19:40 05/08/23 19:30 05/08/23 19:25 05/08/23 19:24 05/08/23 16:28 Room Air Diagnostic Findings Laboratory Results WBC 28.56 K/ul (4.8-10.8) H 05/08/23 20:09 RBC 4.81 M/uL (4.20-5.40) 05/08/23 20:09 Hgb 10.3 g/dl (12.0-16.0) L 05/08/23 20:09 Hct 33.9 % (37.0-47.0) L 05/08/23 20:09 MCV 70.5 fL (80.0-100.0) L 05/08/23 20:09 MCH 21.4 pg (25.0-34.0) L 05/08/23 20:09 MCHC 30.4 g/dL (32.0-36.0) L 05/08/23 20:09 RDW Std Deviation 42.9 fL (36.4-46.3) 05/08/23 20:09 RDW Coeff of Brad 18.2 % (11.5-14.5) H 05/08/23 20:09 Plt Count 325 K/uL (130-400) 05/08/23 20:09 MPV 10.5 fL (9.4-12.4) 05/08/23 20:09 Immature Gran % (Auto) 1.0 % 05/08/23 20:09 Neut % (Auto) 92.7 % 05/08/23 20:09 Lymph % (Auto) 3.8 % 05/08/23 20:09 Finney % (Auto) 2.3 % 05/08/23 20:09 Eos % (Auto) 0.0 % 05/08/23 20:09 Baso % (Auto) 0.2 % 05/08/23 20:09 Neut # (Auto) 26.45 K/uL (1.40-6.50) H 05/08/23 20:09 Lymph # (Auto) 1.08 K/uL (1.20-3.40) L 05/08/23 20:09 Finney # (Auto) 0.66 K/uL (0.11-0.59) H 05/08/23 20:09 Eos # (Auto) 0.01 K/uL (0.00-0.50) 05/08/23 20:09 Baso # (Auto) 0.07 K/uL (0.00-0.20) 05/08/23 20:09 Immature Gran # (Auto) 0.29 K/uL (0.01-0.20) H 05/08/23 20:09 Toxic Vacuolation 1+ 05/08/23 20:09 Ovalocytes 1+ 05/08/23 20:09 Sodium 141 mmol/L (136-145) 05/08/23 20:09 Potassium 2.6 mmol/L (3.5-5.1) L 05/08/23 20:09 Chloride 106 mmol/L (98-107) 05/08/23 20:09 Carbon Dioxide 18 mmol/L (21-32) L 05/08/23 20:09 Anion Gap 17 (3-11) H 05/08/23 20:09 BUN 24 mg/dl (6-23) H 05/08/23 20:09 Creatinine 0.80 mg/dl (0.6-1.2) 05/08/23 20:09 Est Cr Clr Drug Dosing 99.1 ml/min 05/08/23 20:09 Est GFR ( Amer) 103.9 ml/min 05/08/23 20:09 Est GFR (Non-Af Amer) 89.7 ml/min 05/08/23 20:09 BUN/Creatinine Ratio 30.0 (10-20) H 05/08/23 20:09 Glucose 176 mg/dl (70-99(Fasting)) H 05/08/23 20:09 Calcium 9.0 mg/dl (8.6-10.3) 05/08/23 20:09 Magnesium 1.4 mg/dl (1.7-2.4) L 05/08/23 20:09 Total Bilirubin 0.8 mg/dl (0.2-1.0) 05/08/23 20:09 AST 19 U/L (13-39) 05/08/23 20:09 ALT 14 U/L (7-52) 05/08/23 20:09 Alkaline Phosphatase 56 U/L (34-104) 05/08/23 20:09 Troponin I High Sens 6.9 pg/ml (0-14) 05/08/23 20:09 Total Protein 7.2 gm/dl (6.0-8.3) 05/08/23 20:09 Albumin 4.1 gm/dl (3.4-5.0) 05/08/23 20:09 Globulin 3.1 gm/dl (2.5-4.0) 05/08/23 20:09 Albumin/Globulin Ratio 1.3 (0.9-2) 05/08/23 20:09 TSH 3.065 uIu/ml (0.300-4.500) 05/08/23 20:09 HCG, Qual Negative (Negative) 05/08/23 20:07 Impressions Pelvis Ultrasound 05/08/23 20:35 Exam(s): US PELVIS EXAM: US Pelvis Transabdominal and Transvaginal, Complete CLINICAL HISTORY: Pelvic pain. TECHNIQUE: Real-time complete transabdominal and transvaginal pelvic ultrasound with image documentation. Transvaginal imaging was used for better evaluation of the endometrium and adnexa. COMPARISON: Ultrasound pelvis images dated 04/24/2023. No report available for the examination. FINDINGS: Limitations: Prominent bowel gas pattern limits evaluation both transabdominally and endovaginally. Uterus/cervix: The uterus measures 9.2 x 5.4 x 5.7 cm. The endometrial stripe measures 11 mm from 8 mm previously and is somewhat heterogeneous, most conspicuous in the lower uterine segment, similar to the previous examination. There is a similar partially pedunculated hypoechoic area involving the left posterior aspect of the uterus measuring 3.1 x 2.5 x 2.7 cm. Right ovary: The right ovary is poorly delineated secondary to bowel gas pattern but is estimated at 3.6 x 2 x 2.2 cm. Evaluation for vascular flow is not possible secondary to prominent shadowing. Left ovary: The left ovary measures 2.1 x 2.9 x 2.4 cm. Internal vascular flow noted. Normal blood flow. Free fluid: Trace free fluid in the pelvic cul-de-sac. Bladder: Unremarkable as visualized. Wall is normal thickness for degree of distention. IMPRESSION: 1. Stable appearing subserosal fibroid involving the left posterior uterus. 2. The endometrial stripe is somewhat heterogeneous, particularly in the lower uterine segment but is similar to the prior ultrasound examination and is within normal limits, measuring 11 mm from 8 mm previously. 3. The right ovary is poorly delineated but appears grossly unremarkable. The left ovary is unremarkable. No adnexal mass. 4. Trace free fluid in the pelvic cul-de-sac. Electronically signed by: Gustavo Fernandez MD 05/08/23 23:20 PM Abdomen/Pelvis CT 05/08/23 21:07 Exam(s): CT ABDOMEN + PELVIS Without Contrast EXAM: CT Abdomen and Pelvis Without Intravenous Contrast CLINICAL HISTORY: Abdominal pain. TECHNIQUE: Axial computed tomography images of the abdomen and pelvis without intravenous contrast. CTDI is 24.65 mGy and DLP is 1387.36 mGy-cm. Automated exposure control was utilized for the study. A dose lowering technique was utilized adhering to the principles of ALARA. COMPARISON: CT abdomen and pelvis with without contrast dated 02/02/2016 FINDINGS: Lung bases: Unremarkable. No mass. No consolidation. ABDOMEN: Liver: The unenhanced liver demonstrate stable morphologic features. No focal abnormality suspected. Gallbladder and bile ducts: Unremarkable. No calcified stones. No ductal dilation. Pancreas: Unremarkable. No ductal dilation. Spleen: Unremarkable. No splenomegaly. Adrenals: Unremarkable. No mass. Kidneys and ureters: The previously noted right-sided nephrolithiasis is no longer present. No left-sided nephrolithiasis. No hydronephrosis or ureteral stones. Stomach and bowel: No evidence for bowel obstruction. Evaluation of the bowel mucosa is slightly limited without contrast; however, no definite focal asymmetry suggested. PELVIS: Appendix: The appendix is not clearly delineated. No secondary findings to suggest acute appendicitis. Bladder: Unremarkable. No stones. Reproductive: The cystic changes involving the right adnexa noted previously are no longer definitively present. Lobulation of the posterior aspect of the uterus is identified. ABDOMEN and PELVIS: Intraperitoneal space: The previously noted free fluid in the abdomen and pelvis has resolved. No free air. Bones/joints: No acute fracture. No dislocation. Soft tissues: Unremarkable. Vasculature: Unremarkable. No abdominal aortic aneurysm. Lymph nodes: Unremarkable. No enlarged lymph nodes. IMPRESSION: No evidence for bowel obstruction. Evaluation of the bowel mucosa is slightly limited without contrast; however, no definite focal asymmetry suggested. No free intraperitoneal fluid or pneumoperitoneum. Otherwise negative noncontrast examination. Electronically signed by: Gustavo Fernandez MD 05/08/23 23:33 PM ECG Additional Comments: ECG. Normal sinus rhythm with rate of 95. Nonspecific ST abnormalities. Code Status & VTE Plan VTE Prophylaxis Plan VTE Prophylaxis will be ordered: Yes
[2023-05-09] MEDS ORDERED: NITROGLYCERIN SL 0.4 MG/TAB TAB SL PRN (03:50)
[2023-05-09] MEDS ORDERED: diphenhydrAMINE 50 MG/ML VIAL IV PRN (03:50)
[2023-05-09] MEDS ORDERED: EPINEPHrine INJ 1 MG/ML AMP IM PRN (04:21)
[2023-05-09 05:01] LABS: Hematocrit (blood only) 31.3 % (37.0-47.0); Hemoglobin 9.7 g/dl (12.0-16.0); Mean Corpuscular Hemoglobin 21.8 pg (25.0-34.0); Mean Corpuscular Volume 70.5 fL (80.0-100.0); Mean Platelet Volume 10.8 fL (9.4-12.4); Platelet Count 242 K/uL (130-400); Red Blood Count 4.44 M/uL (4.20-5.40); White Blood Count 28.45 K/ul (4.8-10.8)
[2023-05-09 05:15] LABS: Calcium 8.4 mg/dl (8.6-10.3); Creatinine Clr Calc Pharmacy 123.9 ml/min; Est GFR (African American) 125.8 ml/min; Est GFR (Non-African American) 108.5 ml/min; Magnesium 2.1 mg/dl (1.7-2.4); Phosphorus 2.5 mg/dl (2.5-4.9); Potassium 3.6 mmol/L (3.5-5.1)
[2023-05-09 05:28] LABS: Basophils # (auto) 0.05 K/uL (0.00-0.20); Basophils % (auto) 0.2 %; Eosinophils # (auto) 0.33 K/uL (0.00-0.50); Eosinophils % (auto) 1.2 %; Immature Granulocytes # (auto) 0.25 K/uL (0.01-0.20); Immature Granulocytes % (auto) 0.9 %; Lymphocytes # (auto) 0.49 K/uL (1.20-3.40); Lymphocytes % (auto) 1.7 %; Monocytes % (auto) 2.1 %; Neutrophils # (auto) 26.73 K/uL (1.40-6.50); Neutrophils % (auto) 93.9 %; Ovalocytes 1+
--- NOTE | 2023-05-09 06:54 | XRay Report ---
XR chest 1V portable CLINICAL HISTORY: Allergic reaction. COMPARISON STUDY: Chest radiograph October 03, 2007. FINDINGS: Lung volumes are normal. Lungs are clear. There is no pneumothorax or pleural effusion. Car diac size is normal. Mediastinal contours are normal. There is no evidence for pulmonary edema. IMPRESSION: No acute cardiopulmonary findings. ACT 112: Negative or not required by law. Electronically signed by: Elias Wilkes M.D. 05/09/2023 6:53 AM
[2023-05-09] MEDS ORDERED: ACETAMINOPHEN 325 MG TAB PO STA (08:27)
[2023-05-09] MEDS ORDERED: FOLIC ACID 1 MG TAB PO SCH (09:00)
[2023-05-09] MEDS ORDERED: LORATADINE 10 MG TAB PO SCH (09:00)
[2023-05-09] MEDS ORDERED: methylPREDNISolone 60 MG in SYRINGE 0 ML IV SCH (09:00)
[2023-05-09] MEDS ORDERED: methylPREDNISolone 125 MG/2 ML VIAL IV SCH (09:00)
[2023-05-09] MEDS ORDERED: FAMOTIDINE 20 MG in SYRINGE 3 ML IV SCH (09:00)
[2023-05-09 09:12] LABS: Appearance Urine Clear (Clear); Bacteria Urine Automated Negative (Negative); Bilirubin Urine Negative (Negative); Blood Urine 3+ (Negative); Color Urine Yellow; Glucose Urine UA Negative (Negative); Ketones Urine Negative (Negative); Leukocyte Esterase Urine Negative (Negative); Nitrite Urine Negative (Negative); Protein Urine Negative (Negative); RBC Urine Automated >30 /hpf (0-4); Specific Gravity Urine 1.015 (1.000-1.030); Urobilinogen Urine Negative (Negative)
[2023-05-09] MEDS ORDERED: INFLUENZA VIRUS QUADRIVALENT VACCINE (IIV4) 0.5 ML SYR IM ONE (09:53)
--- NOTE | 2023-05-09 10:36 | OB/GYN Consultation ---
Date of Consultation May 09, 2023 Assessment & Plan (1) Menorrhagia: (2) Allergen injection reaction: (3) Abdominal pain: Plan 43 yo admitted to medicine service for allergic reaction to depo, retail stock clerk consulted due to worsened abd pain yesterday that has since resolved -VSS -Hard to say if significant cramping pain that she had yesterday was just depo related, related to period, allergic reaction causing whole body to cramp or some combination of all of them. Since then that pain has resolved and she reports just normal period like cramps so acute intervention not indicated. She can f/u outpt w/ her primary retail stock clerk to determine further management of her periods. Can use ibuprofen, tylenol, heat packs for management of cramping at this point -defer remainder of management of allergic reaction to primary team History of Present Illness Reason for Consultation: depo shot, allergic reaction Requesting Physician: Dr. Kruse Attending Physician: Ernie Rogers MD History of Present Illness 43 yo presented to ER evaluation after reaction to depo shot. Received depo shot yesterday in the office for management of menorrhagia/AUB and as she was driving away, began developing facial swelling and SOB so returned to the ER. Period spotting had started last week but first day of full flow was 05/07. In the ER she received multiple treatments to her reaction, noted a lot of general body aches as well significant menstrual cramps into her back. Since then, general body aches are still presents, is just experiencing her usual amount of cramping and bleeding with her period. Denies lightheadedness/dizziness Allergies Allergy/AdvReac Type Severity Reaction Status Date / Time No Known Allergies Allergy Unknown Verified 05/08/23 18:08 Home Medications Medication Instructions Recorded Confirmed Type folic acid 1 mg tablet 1 mg PO DAILY 05/08/23 05/08/23 History medroxyprogesterone 150 mg/mL 150 mg IM DIRECTED 05/08/23 05/08/23 History intramuscular suspension (Depo-Provera) tirzepatide 7.5 mg/0.5 mL 7.5 mg subcut WK 05/08/23 05/08/23 History subcutaneous pen injector (Mounjaro) Patient History Medical History History of in vitro fertilization Difficult intravenous access Slow to wake up after anesthesia PONV (postoperative nausea and vomiting) Urinary retention Peritoneal cyst Anxiety Gestational diabetes Legally blind History of ovarian cyst Endometrial polyp Menometrorrhagia 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 Nephrolithiasis Surgical History History of incision and drainage History of laparoscopy History of History of cholecystectomy History of colonoscopy H/O cystoscopy History of ankle surgery History of colon surgery H/O eye surgery Family History Mother Diabetes Family/Other Breast cancer Father Myocardial infarction Denies family history of Ovarian cancer Colorectal cancer Social History Smoking Status: Never smoker Second Hand Exposure: No; Hx Alcohol Use: No Hx Substance Use: No Preferred Language: Telugu Communication Ability: Effective 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 Multiple scars noted Results & Data Vital Signs (Past 12 Hours) Vital Signs Temp Pulse Pulse Resp BP BP Pulse Ox 05/09/23 08:42 98.4 F 100 H 19 122/60 98 05/09/23 07:25 106 H 05/09/23 06:00 84 18 120/67 97 05/09/23 03:40 90 05/09/23 02:30 87 18 99 05/09/23 02:00 111/66 05/09/23 02:00 84 14 99 05/09/23 01:57 110/66 05/09/23 01:57 92 H 24 99 05/09/23 01:50 102 H 15 99 05/09/23 01:42 111 H 17 99 05/09/23 01:30 96 H 19 05/09/23 01:20 86 17 97 05/09/23 01:10 90 21 97 05/09/23 01:00 87 14 99 05/09/23 00:50 88 21 98 05/09/23 00:40 92 H 21 99 05/09/23 00:30 88 31 H 98 05/09/23 00:20 96 H 29 H 97 05/09/23 00:10 101 H 31 H 97 05/09/23 00:00 96 H 21 95 05/08/23 23:50 97 H 18 95 05/08/23 23:40 99 H 17 99 05/08/23 23:32 109 H 05/08/23 23:30 107 H 24 98 05/08/23 23:20 98 H 20 94 05/08/23 23:10 97 H 30 H 96 05/08/23 23:00 98 H 26 H 99 05/08/23 22:54 104 H 20 127/84 99 05/08/23 22:52 101 H 10 L 05/08/23 22:34 88 20 127/84 98 05/08/23 22:30 100 H 19 100 O2 Del Method 05/09/23 08:42 Room Air 05/09/23 07:25 05/09/23 06:00 Room Air 05/09/23 03:40 05/09/23 02:30 05/09/23 02:00 05/09/23 02:00 05/09/23 01:57 05/09/23 01:57 05/09/23 01:50 05/09/23 01:42 05/09/23 01:30 05/09/23 01:20 05/09/23 01:10 05/09/23 01:00 05/09/23 00:50 05/09/23 00:40 05/09/23 00:30 05/09/23 00:20 05/09/23 00:10 05/09/23 00:00 05/08/23 23:50 05/08/23 23:40 05/08/23 23:32 05/08/23 23:30 05/08/23 23:20 05/08/23 23:10 05/08/23 23:00 05/08/23 22:54 05/08/23 22:52 05/08/23 22:34 Room Air 05/08/23 22:30 PG Care Time/CCT Total # of Minutes Spent Total Time Spent with Patient: Total time spent is greater than 50% in coordination of care (as documented) at patient's floor/unit and/or counseling patient: Coding Level of Care Code 33056 OFFICE CONSULT LVL Diagnoses Menorrhagia N92.0 Allergen injection reaction T80.89XA; T45.0X5A Abdominal pain R10.9
--- NOTE | 2023-05-09 11:54 | Electrocardiogram Report ---
Test Reason : Blood Pressure : / mmHG Vent. Rate : 095 BPM Atrial Rate : 095 BPM P-R Int : 148 ms QRS Dur : 070 ms QT Int : 372 ms P-R-T Axes : 067 046 059 degrees QTc Int : 467 ms Normal sinus rhythm Low voltage QRS Nonspecific ST abnormality Abnormal ECG No previous ECGs available Confirmed by Matteo Leon ([id number] on 05/09/2023 11:54:30 AM Referred By: REFERRED SELF Confirmed By:Joe Leon
--- NOTE | 2023-05-09 12:47 | Allergy & Immunology Consult ---
Date of Consultation May 09, 2023 Assessment & Plan (1) Adverse reaction to drug: (2) Anaphylaxis: Plan Patient presents today with drug-induced anaphylaxis. At this point it is not clear whether this was an IgE mediated reaction to something in the Depo-Provera versus a pseudo allergic reaction. There are a number of different mechanisms by which progesterone can cause reactions. Was a condition called autoimmune progesterone dermatitis where patients can get urticarial type reactions. Some patients may develop IgE mediated allergies to medroxyprogesterone. There might be activation of mast cells independent of a true allergic reaction as mast cells contain receptors for estrogen and progesterone. It is also possible that she could have reacted to an inactive ingredient in the injection. The injection contains polyethylene glycol, polysorbate, methylparaben in addition to medroxyprogesterone. The differential diagnosis also includes idiopathic anaphylaxis. A tryptase was drawn and is pending. We will need to perform skin testing to the Depo-Provera as well as polyethylene glycol to determine which of these could have been the culprit. I will set up an allergy visit so that we can perform testing and determine what might be safe to use moving forward. If this ended up being autoimmune progesterone dermatitis, it was possible that she could develop recurrent hives over the next few weeks. If she did, I recommend that she start using cetirizine 10 mg p.o. once a day or twice a day. Regarding abnormal blood work with elevated neutrophil levels, I suspect that this is related to the high doses of steroids that she received in the emergency room. From my standpoint, she has been observed for about 24 hours and should be outside of the window for serious late phase allergic reaction. It should be safe for her to be discharged. I will set up the allergy follow-up visit. Total time for today is 43 minutes which includes reviewing records prior to patient arrival, the [id number] visit, as well as time to record documentation after patient departure. History of Present Illness Requesting Physician: This is a 43-year-old female who received a shot of Depo-Provera around 4 PM on 05/08/2023. She initially tolerated this, but if she was going home she developed a constellation of symptoms including flushing, tingling on the legs, nausea, abdominal pain, chest pain, shortness of breath. She had just left the clinic and was hanging out of the parking lot when her symptoms started. They turned around and proceeded to emergency room. When they arrived, she also developed vomiting and also had diarrhea. She also had significant menstrual cramping and back pain. She says that she felt like she was almost in labor. In the emergency room, she was initially treated with IV steroids and IV Benadryl but symptoms were not improving and she was given IM epinephrine. After 2 doses, her symptoms did start improving. At this point, her symptoms are essentially back to baseline. She does feel worn out from the combination of receiving the medications and throwing up. She did previously receive treatment with progesterone as part of fertility treatments and had tolerated it. She has never had a medication allergy. She denies using medications containing MiraLAX, at least recently. Reviewing her medication treatment in the ER, she received dexamethasone 10 mg IM and methylprednisolone 125 mg yesterday. She also received famotidine, 2 doses of epinephrine, 50 mg of Benadryl IV. Attending Physician: Ernie Rogers MD Allergies Allergy/AdvReac Type Severity Reaction Status Date / Time No Known Allergies Allergy Unknown Verified 05/08/23 18:08 Home Medications Medication Instructions Recorded Confirmed Type folic acid 1 mg tablet 1 mg PO DAILY 05/08/23 05/08/23 History medroxyprogesterone 150 mg/mL 150 mg IM DIRECTED 05/08/23 05/08/23 History intramuscular suspension (Depo-Provera) tirzepatide 7.5 mg/0.5 mL 7.5 mg subcut WK 05/08/23 05/08/23 History subcutaneous pen injector (Mounjaro) Patient History Medical History History of in vitro fertilization Difficult intravenous access Slow to wake up after anesthesia PONV (postoperative nausea and vomiting) Urinary retention Peritoneal cyst Anxiety Gestational diabetes Legally blind History of ovarian cyst Endometrial polyp Menometrorrhagia 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 Nephrolithiasis Surgical History History of incision and drainage History of laparoscopy History of History of cholecystectomy History of colonoscopy H/O cystoscopy History of ankle surgery History of colon surgery H/O eye surgery Family History Mother Diabetes Family/Other Breast cancer Father Myocardial infarction Denies family history of Ovarian cancer Colorectal cancer Social History Smoking Status: Never smoker Second Hand Exposure: No; Hx Alcohol Use: No Hx Substance Use: No Preferred Language: [place] Islander Communication Ability: Effective Circulation Analyst Required: No Beliefs That Will Affect Care: None Current Living Situation: Spouse Feels Safe at Home: Yes Safety Concerns: Feels Safe At This Time Assistive Devices: Cane Review of Systems Review of Systems: Constitutional: all normal. HEENT: as per HPI otherwise normal. Respiratory: as per HPI otherwise normal. Cardiovascular: all normal. Gastrointestinal: all normal. Skin: as per HPI otherwise normal. Endocrine: all normal. Hematologic: all normal. Musculoskeletal: all normal. Neurologic: all normal. Psychiatric: all normal. Vascular: all normal. Urinary: all normal. Physical Exam Constitutional: WD/WN, vitals as above Eyes: no conjunctival abnormality and sclerae not anicteric ENMT: external ear and nose normal, oropharynx normal Neck: trachea midline Respiratory: normal respiratory effort and able to speak in complete sentences; does not use accessory muscles Musculoskeletal: Head/Neck/Chest: head atraumatic Gait: normal gait Skin: no rashes and no lesions Psychiatric: A+Ox3, euthymic affect Results & Data Vital Signs (Past 12 Hours) Vital Signs Temp Pulse Pulse Resp BP BP Pulse Ox 05/09/23 11:59 98 H 18 05/09/23 10:59 37.0 C 96 H 16 126/56 L 95 05/09/23 10:30 105 H 18 99 05/09/23 08:42 36.9 C 100 H 19 122/60 98 05/09/23 07:25 106 H 05/09/23 06:00 84 18 120/67 97 05/09/23 03:40 90 05/09/23 02:30 87 18 99 05/09/23 02:00 111/66 05/09/23 02:00 84 14 99 05/09/23 01:57 110/66 05/09/23 01:57 92 H 24 99 05/09/23 01:50 102 H 15 99 05/09/23 01:42 111 H 17 99 05/09/23 01:30 96 H 19 05/09/23 01:20 86 17 97 05/09/23 01:10 90 21 97 05/09/23 01:00 87 14 99 05/09/23 00:50 88 21 98 O2 Del Method 05/09/23 11:59 Room Air 05/09/23 10:59 Room Air 05/09/23 10:30 Room Air 05/09/23 08:42 Room Air 05/09/23 07:25 05/09/23 06:00 Room Air 05/09/23 03:40 05/09/23 02:30 05/09/23 02:00 05/09/23 02:00 05/09/23 01:57 05/09/23 01:57 05/09/23 01:50 05/09/23 01:42 05/09/23 01:30 05/09/23 01:20 05/09/23 01:10 05/09/23 01:00 05/09/23 00:50 Coding Level of Care Code 82979 OFFICE CONSULT LVL M Diagnoses Adverse reaction to drug T50.905A Encounter type: initial encounter Anaphylaxis T78.2XXA Encounter type: initial encounter (1) Adverse reaction to drug Encounter type: initial encounter Qualified Code(s): T50.905A - Adverse effect of unspecified drugs, medicaments and biological substances, initial encounter (2) Anaphylaxis Encounter type: initial encounter Qualified Code(s): T78.2XXA - Anaphylactic shock, unspecified, initial encounter
--- NOTE | 2023-05-09 15:57 | Discharge Summary ---
Date of Service May 09, 2023 Admission HPI Per Admitting Provider 43-year-old female with past med significant for MTHFR mutation, history of cerebral palsy, history of retinopathy of prematurity, obesity, depression, comes because of allergic reaction. Patient had a Depo shot today and when she was going home she felt redness all over her body and tingling in the legs and was feeling nauseous, , abdominal pain, had some chest pain and shortness of breath. Was also having diarrhea. In the ER IV steroid and IV Benadryl given but symptoms did not improve. IM epi was given which improved her symptoms but not totally and after second dose of IM epinephrine her symptoms resolved. Currently resting comfortably and hemodynamically stable. Currently no chest pain or shortness of breath. No nausea. Has some mild abdominal pain. No headache. No blurred visions. No difficulty swallowing. No sore throat. No cough. No fevers. Past med history. As mentioned above Past surgical history. Right cataract complex surgery. Colonoscopy. Dilatation and curettage. Exploratory laparotomy. Iridotomy. Laparoscopic unsuccessful lysis of pelvic admissions. Laser trabeculoplasty. Ocular processes. Partial removal of colon at and had reversed ileostomy at age 8 months. Cholecystectomy. Removal of small intestine with fusion. Social history. . No smoking. Alcohol rarely. No drug use Family history. Father had skin cancer. Hypertension. CABG. Hypertension. Mother had skin cancer. Diabetes. Hypertension. Hypothyroidism. Admission Exam Per Admitting Provider General- Not in distress Head- atraumatic Eyes- PERRL. ENT- oropharynx clear Neck- supple, no JVD. Lungs- clear to auscultation No wheezing or crackles. Heart- regular rhythm; no murmur, no gallop. Abdomen- normal bowel sounds, soft, nontender, no distension. Extremities- no pretibial edema, no erythema seen. Neuro- alert, oriented x 3; no facial palsy; no dysarthria; moves extremities. Skin- warm & dry Principal Diagnosis Allergic reaction to drug, anaphylaxis Discharge Exam General- young obese F in NAD Head- atraumatic Eyes- PERRL. ENT- oropharynx clear Neck- supple, no JVD. Lungs- clear to auscultation No wheezing or crackles. Heart- regular rhythm; no murmur, no gallop. Abdomen- normal bowel sounds, soft, nontender, no distension. Extremities- no pretibial edema, no erythema seen. Neuro- alert, oriented x 3; no facial palsy; no dysarthria; moves extremities. Skin- warm & dry Discharge Data Allergies Allergy/AdvReac Type Severity Reaction Status Date / Time medroxyprogesterone Allergy Unknown Verified 05/09/23 15:33 [From Depo-Provera] Consultations 05/09/23 00:08 ED Decision to Admit Stat 05/09/23 07:16 Consult Allergy / Immunology Routine 05/09/23 08:00 Consult Gynecology Routine Ordered Studies 05/08/23 20:35 US pelvic complete Stat US transvaginal Stat FINDINGS: Limitations: Prominent bowel gas pattern limits evaluation both transabdominally and endovaginally. Uterus/cervix: The uterus measures 9.2 x 5.4 x 5.7 cm. The endometrial stripe measures 11 mm from 8 mm previously and is somewhat heterogeneous, most conspicuous in the lower uterine segment, similar to the previous examination. There is a similar partially pedunculated hypoechoic area involving the left posterior aspect of the uterus measuring 3.1 x 2.5 x 2.7 cm. Right ovary: The right ovary is poorly delineated secondary to bowel gas pattern but is estimated at 3.6 x 2 x 2.2 cm. Evaluation for vascular flow is not possible secondary to prominent shadowing. Left ovary: The left ovary measures 2.1 x 2.9 x 2.4 cm. Internal vascular flow noted. Normal blood flow. Free fluid: Trace free fluid in the pelvic cul-de-sac. Bladder: Unremarkable as visualized. Wall is normal thickness for degree of distention. IMPRESSION: 1. Stable appearing subserosal fibroid involving the left posterior uterus. 2. The endometrial stripe is somewhat heterogeneous, particularly in the lower uterine segment but is similar to the prior ultrasound examination and is within normal limits, measuring 11 mm from 8 mm previously. 3. The right ovary is poorly delineated but appears grossly unremarkable. The left ovary is unremarkable. No adnexal mass. 4. Trace free fluid in the pelvic cul-de-sac. 05/08/23 21:07 CT abd pelvis wo con Stat FINDINGS: Lung bases: Unremarkable. No mass. No consolidation. ABDOMEN: Liver: The unenhanced liver demonstrate stable morphologic features. No focal abnormality suspected. Gallbladder and bile ducts: Unremarkable. No calcified stones. No ductal dilation. Pancreas: Unremarkable. No ductal dilation. Spleen: Unremarkable. No splenomegaly. Adrenals: Unremarkable. No mass. Kidneys and ureters: The previously noted right-sided nephrolithiasis is no longer present. No left-sided nephrolithiasis. No hydronephrosis or ureteral stones. Stomach and bowel: No evidence for bowel obstruction. Evaluation of the bowel mucosa is slightly limited without contrast; however, no definite focal asymmetry suggested. PELVIS: Appendix: The appendix is not clearly delineated. No secondary findings to suggest acute appendicitis. Bladder: Unremarkable. No stones. Reproductive: The cystic changes involving the right adnexa noted previously are no longer definitively present. Lobulation of the posterior aspect of the uterus is identified. ABDOMEN and PELVIS: Intraperitoneal space: The previously noted free fluid in the abdomen and pelvis has resolved. No free air. Bones/joints: No acute fracture. No dislocation. Soft tissues: Unremarkable. Vasculature: Unremarkable. No abdominal aortic aneurysm. Lymph nodes: Unremarkable. No enlarged lymph nodes. IMPRESSION: No evidence for bowel obstruction. Evaluation of the bowel mucosa is slightly limited without contrast; however, no definite focal asymmetry suggested. No free intraperitoneal fluid or pneumoperitoneum. Otherwise negative noncontrast examination. Hospital Course (1) Allergen injection reaction: 43-year-old female with past med significant for MTHFR mutation, history of cerebral palsy, history of retinopathy of prematurity, obesity, depression, comes because of allergic reaction. Patient had a Depo shot today and is when she was going home she felt redness all over her body and tingling in the legs and was feeling nauseous, , abdominal pain, had some chest pain and shortness of breath. Was also having diarrhea. Allergic reaction, anaphylaxis after Depo shot Had chest pain, shortness of breath, nausea, abdominal pain, redness on her body and tingling in the legs IV steroid and IV Benadryl did not improve After receiving 2 shots of IM epinephrine her symptoms resolved continued with IV Solu-Medrol, cetirizine, Pepcid, and IV Benadryl as needed EPI if needed Allergy/immunology consult - Patient presents today with drug-induced anaphylaxis. At this point it is not clear whether this was an IgE mediated reaction to something in the Depo-Provera versus a pseudo allergic reaction. There are a number of different mechanisms by which progesterone can cause reactions. Was a condition called autoimmune progesterone dermatitis where patients can get urticarial type reactions. Some patients may develop IgE mediated allergies to medroxyprogesterone. There might be activation of mast cells independent of a true allergic reaction as mast cells contain receptors for estrogen and progesterone. It is also possible that she could have reacted to an inactive ingredient in the injection. The injection contains polyethylene glycol, polysorbate, methylparaben in addition to medroxyprogesterone. The differential diagnosis also includes idiopathic anaphylaxis. A tryptase was drawn and is pending. We will need to perform skin testing to the Depo-Provera as well as polyethylene glycol to determine which of these could have been the culprit. I will set up an allergy visit so that we can perform testing and determine what might be safe to use moving forward. If this ended up being autoimmune progesterone dermatitis, it was possible that she could develop recurrent hives over the next few weeks. If she did, I recommend that she start using cetirizine 10 mg p.o. once a day or twice a day. Regarding abnormal blood work with elevated neutrophil levels, I suspect that this is related to the high doses of steroids that she received in the emergency room. From my standpoint, she has been observed for about 24 hours and should be outside of the window for serious late phase allergic reaction. It should be safe for her to be discharged. I will set up the allergy follow-up visit. Leukocytosis - as above, likely secondary to steroids - blood cultx obtained in ED - follow up final results as outpt Hypokalemia and hypomagnesia replace and monitor Abdominal pain Pelvic ultrasound showing fibroids Patient states she knows she has fibroids follows with [facility] consulted - Pt can f/u outpt w/ her primary billet assembler to determine further management of her periods. Can use ibuprofen, tylenol, heat packs for management of cramping at this point. Total Time Total Time Spent Total Time Spent (In Minutes): 40 Discharge Plan Discharge Items Patient Disposition: Home - Self-Care Reason For Visit: ALLERGIC REACTION, ANAPLYLAXIS Discharge Diagnosis: Allergic reaction to drug, anaphylaxis Condition on Discharge: Good Activity: Per Instructions section Non-emergency contact: Primary Care Provider and Specialist Call non-emergency contact if: you have any medication questions and your symptoms worsen Follow-up/Referrals: Niya Bueno DO [Primary Care Provider] - Diet: Regular Addtl Attending Provider Instructions: Follow up with your primary care doctor and allergy/immunology doctor - Dr. Goodson. You can use ibuprofen, tylenol, heat pack for abdominal cramps. Pending Studies at Discharge: Yes Studies:: tryptase, blood cultx Stand-Alone Forms: My [facility], Smoking Cessation Medications and DC Order Prescriptions: Continued folic acid 1 mg tablet 1 mg PO DAILY Mounjaro 7.5 mg/0.5 mL pen injector 7.5 mg SUBCUT WK Rx Instructions: SATURDAYS Discontinued medroxyprogesterone [Depo-Provera] 150 mg/mL suspension 150 mg IM DIRECTED Discharge Orders: Discharge Order (Routine); Ordered 05/09/23 Ordered By: Ernie Rogers Admission Data Admit Date/Time: 05/09/23 02:26 Attending Provider: Ernie Rogers Admit Provider: Omkar Kruse Primary Care Provider: Niya Bueno Other Providers: Omkar Kruse; Poly Ocampo; Sid Betancourt; Christine Leavitt; Neela Wilson; Ángela Murray; Stephan Evans; Freda Huntley; Winsome Flores; Bailey Reyes; Trisha Yuen; Roger Harmon; Mitra Goodson
== END 2023-05-09 16:20 | disposition home or self-care (01) ==
LOC: ED 16:08 → INTOOBSV 05-09 02:26 → EDINP 05-09 02:26